=== PATIENT | female | born 1985 | race Two or more races ===

== ENCOUNTER 2018-09-02 03:41 | Emergency (ER) | payer SELFPAY ==
[~2018-09-02] VITALS: Ht 188 cm; Wt 54.4 kg
[2018-09-02 07:26] VITALS: BP 131/68
[2018-09-02] MEDS ORDERED: KETOROLAC TROMETH 60MG/2ML VIAL IM ONE (07:45)
[2018-09-02] MEDS ORDERED: METHOCARBAMOL 500 MG TAB PO ONE (07:45)
== END 2018-09-02 08:17 | disposition home or self-care (01) ==
LOC: ER 03:41 → EDBD 03:41 → ER 08:17
DX: S16.1XXA Strain of muscle, fascia and tendon at neck level, initial encounter (principal); S40.022A Contusion of left upper arm, initial encounter; R51 Headache; V43.52XA Car driver injured in collision with other type car in traffic accident, initial encounter; Y93.89 Activity, other specified; Y99.8 Other external cause status; Y92.410 Unspecified street and highway as the place of occurrence of the external cause
CPT/HCPCS: 70450; 70486; 73030; 81025; 96372; 99284; J1885